=== PATIENT | male | born 1995 | race African-American/Black ===

== ENCOUNTER 2018-05-06 16:13 | Emergency (ER) | payer SELFPAY ==
[~2018-05-06] VITALS: Ht 162.6 cm; Wt 69.9 kg
[2018-05-06] MEDS: IBUPROFEN 800 MG (MOTRIN) TAB PO ONE (16:55)
[2018-05-06] MEDS: ACETAMINOPHEN 500 MG TAB (TYLENOL) PO ONE (16:55)
--- NOTE | 2018-05-06 17:02 | ED General ---
General Chief Complaint: Cough/Cold/Flu Symptoms Stated Complaint: SORE ALL OVER,V/D Nursing Triage Note: ARRIVED VIA AMB TO ROOM 08. STATES HE HAS NOT FELT WELL X1 WEEK. GENERALIZED BODY ACHES AND NOT EATING. Nursing Sepsis Screen: No Definite Risk Source of Information: Patient Exam Limitations: No Limitations History of Present Illness Date Seen by Provider: May 06, 2018 Time Seen by Provider: 17:00 Initial Comments Patient is a 22-year-old male who identifies as a female, she reports that she has not felt well for one week complaining of fever, sore throat, and generalized body aches. Denies taking any zghm-bhz-rjvbmmq medications for the symptoms. She is febrile on arrival to the emergency room. Timing/Duration: 1 Week Associated Systoms: Fever/Chills Allergies and Home Medications Allergies Coded Allergies: No Known Drug Allergies (Unverified , 05/06/18) Home Medications Ondansetron HCl 4 Mg Tablet, 4 MG PO PRN PRN for NAUSEA/VOMITING-1ST LINE Prescribed by: NEHA LARA on 05/06/18 5841 Patient Home Medication List Home Medication List Reviewed: Yes Review of Systems Review of Systems Constitutional: see HPI, chills, fever, malaise EENTM: see HPI, throat pain Musculoskeletal: see HPI, muscle pain All Other Systems Reviewed Negative Unless Noted: Yes Past Tdrrbne-Ainvcr-Dujwfm Hx Past Med/Social Hx: Reviewed Nursing Past Med/Soc Hx Patient Social History Alcohol Use: Denies Use Recreational Drug Use: No Smoking Status: Current Everyday Smoker Recent Foreign Travel: No Contact w/Someone Who Travel: No Recent Infectious Disease Expo: No Recent Hopitalizations: No Seasonal Allergies Seasonal Allergies: No Past Medical History Surgeries: No Respiratory: No Cardiac: No Neurological: No Genitourinary: No Gastrointestinal: No Musculoskeletal: No Endocrine: No HEENT: No Cancer: No Psychosocial: No Integumentary: No Family Medical History Reviewed Nursing Family Hx Physical Exam Vital Signs Vital Signs - First Documented 05/06/18 16:27 Temp 101.6 Pulse 81 Resp 16 B/P (MAP) 105/86 (92) Pulse Ox 98 O2 Delivery Room Air Capillary Refill : Less Than 3 Seconds Height, Weight, BMI Height: 5'4.00" Weight: 154lbs. oz. 69.567667gj; BMI Method:Stated General Appearance: No Apparent Distress, WD/WN Eyes: Bilateral Eye Normal Inspection, Bilateral Eye PERRL, Bilateral Eye EOMI HEENT: PERRL/EOMI, TMs Normal, Pharyngeal Erythema, Tonsillar Exudate, Tonsillar Enlargement Respiratory: Chest Non Tender, Lungs Clear, Normal Breath Sounds, No Accessory Muscle Use, No Respiratory Distress Cardiovascular: Regular Rate, Rhythm, No Edema, No Gallop, No JVD, No Murmur, Normal Peripheral Pulses Neurologic/Psychiatric: Alert, Oriented x3, Normal Mood/Affect Skin: Normal Color, Warm/Dry Progress/Results/Core Measures Suspected Sepsis Recent Fever Within 48 Hours: No Infection Criteria Present: None New/Unexplained Altered Menta: No Sepsis Screen: No Definite Risk SIRS Temperature:101.6 Pulse: 81 Respiratory Rate: 16 Blood Pressure 105 /86 Mean: 92 Results/Orders Lab Results Laboratory Tests Test 05/06/18 16:53 Range/Units Group A Streptococcus Screen NEGATIVE NEGATIVE Micro Results Microbiology 05/06/18 Influenza Types A,B Antigen (DRE) - Final, Complete My Orders Orders - NEHA LARA Influenza A And B Antigens (05/06/18 16:38) Acetaminophen Tablet (Tylenol Tablet) (05/06/18 16:45) Ibuprofen Tablet (Motrin Tablet) (05/06/18 16:45) Rapid Strep A Screen (05/06/18 16:54) Penicillin G Benzathine Inject (Bicillin (05/06/18 17:45) Medications Given in ED Current Medications Medications Dose Ordered Sig/Juan Route Start Time Stop Time Status Last Admin Dose Admin Acetaminophen 1,000 mg ONCE ONCE PO 05/06/18 16:45 05/06/18 16:46 DC 05/06/18 16:55 1,000 MG Ibuprofen 800 mg ONCE ONCE PO 05/06/18 16:45 05/06/18 16:46 DC 05/06/18 16:55 800 MG Penicillin G Benzathine 1,200,000 unit ONCE ONCE IM 05/06/18 17:45 05/06/18 17:46 DC 05/06/18 17:49 1,200,000 UNIT Vital Signs/I&O 05/06/18 05/06/18 16:27 18:10 Temp 101.6 99.1 Pulse 81 78 Resp 16 16 B/P (MAP) 105/86 (92) 114/59 (77) Pulse Ox 98 97 O2 Delivery Room Air Room Air Capillary Refill : Less Than 3 Seconds Blood Pressure Mean: 92 Departure Impression Primary Impression: Strep pharyngitis Disposition: 01 HOME, SELF-CARE Condition: Stable/Unchanged Departure-Patient Inst. Decision time for Depature: 17:39 Referrals: NO,LOCAL PHYSICIAN (PCP/Family) Primary Care Physician Patient Instructions: Strep Throat (DC) Add. Discharge Instructions: Ibuprofen and Tylenol as needed for pain and fever as directed by the bottle. Zofran as needed for nausea and vomiting. Follow-up with her primary care provider within 1 week for recheck. Return back to the emergency room for any worsening symptoms or concerns as needed. All discharge instructions reviewed with patient and/or family. Voiced understanding. Scripts Ondansetron HCl (Ondansetron HCl) 4 Mg Tablet 4 MG PO PRN PRN for NAUSEA/VOMITING-1ST LINE, #14 TAB Prov: NEHA LARA 05/06/18 NEHA LARA May 06, 2018 17:02
[2018-05-06] MEDS ORDERED: ONDA4TAB10 PO (17:41)
[2018-05-06] MEDS: PEN G BENZ (BICILLIN LA) 1.2 M UN/2 ML SYR IM ONE (17:49)
[2018-05-06 18:10] VITALS: BP 114/59
== END 2018-05-06 18:10 | disposition home or self-care (01) ==
LOC: EDSEX 16:16 → ER 16:16
DX: J02.0 Streptococcal pharyngitis (principal); F17.200 Nicotine dependence, unspecified, uncomplicated
CPT/HCPCS: 87430; 87804

== ENCOUNTER 2021-03-07 01:21 | Emergency (ER) | payer MEDICAID ==
[~2021-03-07] VITALS: Ht 165 cm; Wt 77.1 kg
[~2021-03-07 01:21] MED LIST: ONDA-105 PO
[2021-03-07] MEDS ORDERED: [UNRECOGNIZED DRUG - OTHER] (01:59)
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
[2021-03-07 04:54] VITALS: BP 123/78
--- NOTE | 2021-03-07 05:57 | Diagnostic Imaging Report ---
PROCEDURE: CT head and CT cervical spine without contrast. TECHNIQUE: Multiple contiguous axial images were obtained through the brain and cervical spine without the use of intravenous contrast. Sagittal and coronal reformations through the cervical spine were then performed. Auto Exposure Controls were utilized during the CT exam to meet ALARA standards for radiation dose reduction. INDICATION: Injury, head and neck pain There are no prior studies available for comparison. CT HEAD: There is no mass, shift of the midline or hemorrhage to suggest an acute intracranial abnormality. The ventricles are not abnormally dilated. The bone windows show no evidence for a fracture or for a destructive lesion. There are skin sushila in the scalp overlying the frontal bones near the vertex of the skull. The orbits are symmetrical and within normal limits. There is near complete opacification of the right maxillary antrum by mucosal thickening and/or fluid. The sinuses are otherwise generally clear. IMPRESSION: 1. There is no evidence for acute intracranial abnormality. 2. There has been a soft tissue injury to the scalp near the vertex of the skull. 3. There is severe right maxillary sinusitis. CT cervical spine: The reconstructed parasagittal images show reversal of the normal lordosis of the cervical spine. This may be secondary to muscle spasm and/or positioning. The thecal sac is generous and there is no evidence for spinal stenosis or nerve root encroachment at any level. There is no fracture or acute bony abnormality identified either. There is no sign of retropharyngeal edema but there are a few prominent lymph nodes involving each cervical chain. The largest of these nodes measures approximately 1 cm in size. These nodes are nonspecific in appearance but could be related to inflammatory or infectious process. It would be less likely that they are neoplastic in nature. Clinical follow-up is recommended. The thyroid gland is unremarkable. The lung apices are clear. IMPRESSION: 1. The reversal of the normal lordosis of the cervical spine may be secondary to muscle spasm and/or positioning. There is no acute bony abnormality identified. 2. There are borderline enlarged lymph nodes involving each cervical chain. Clinical follow-up is recommended. 3. I agree with the [facility] interpretation of this exam. Dictated by: Dictated on workstation # [id number]
--- NOTE | 2021-03-07 06:44 | Diagnostic Imaging Report ---
Pelvis at 257h. INDICATION: Pelvic pain on the right Single AP view the pelvis was obtained. There are no prior studies for comparison. There is no fracture, dislocation or acute bony abnormality evident. The hip and sacral joints are well maintained. The soft tissues are unremarkable. IMPRESSION: There is no evidence for an acute bony abnormality. Dictated by: Dictated on workstation # [id number]
== END 2021-03-07 04:59 | disposition home or self-care (01) ==
LOC: EDUNIT# 01:21 → ER 01:28
DX: S01.312A Laceration without foreign body of left ear, initial encounter (principal); M25.551 Pain in right hip; F17.210 Nicotine dependence, cigarettes, uncomplicated; Y04.2XXA Assault by strike against or bumped into by another person, initial encounter; B20 Human immunodeficiency virus [HIV] disease
CPT/HCPCS: 70450; 72125; 72170